=== PATIENT | female | born 1980 | race American Indian/Alaskan Native ===

== ENCOUNTER 2018-12-21 19:17 | Emergency (ER) | payer MEDICARE ==
[2018-12-21] MEDS ORDERED: MORPHINE IV ONE (20:38)
[2018-12-21] MEDS ORDERED: ZOFRAN IV ONE (20:38)
--- NOTE | 2018-12-21 20:38 | Emergency Department Report ---
ED Psych HPI - General Chief Complaint: Medical Clearance Stated Complaint: MH EVAL/CROHNS PAIN Time Seen by Provider: 12/21/18 19:35 Source: EMS Mode of arrival: Stretcher - History of Present Illness Initial Comments: Patient is a 38-year-old female with history of depression, Crohn's disease, squamous cell carcinoma of the skin in remission. Patient presented to the ER complaining of feeling depressed and hearing voices. Patient also stated that she has been having some visual hallucinations to. Patient stated that she thing that she has nothing to live for. Patient stated that she does not have any social support. Patient denied any homicidal ideation. Patient is also complaining of chronic abdominal pains secondary to her Crohn's disease. No fever or chills. MD Complaint: suicidal ideation, feels depressed -: week(s) Associated Psychiatric Symptoms: depression, suicidal ideation, auditory hallucinations Quality: constant Associated Symptoms: denies other symptoms Treatments Prior to Arrival: none If Self Harm: admits thoughts of - Related Data Allergies Allergy/AdvReac Type Severity Reaction Status Date / Time ibuprofen Allergy Hives Verified 12/21/18 19:40 ED Review of Systems ROS: Stated complaint: MH EVAL/CROHNS PAIN Other details as noted in HPI Comment: All other systems reviewed and negative Constitutional: denies: chills, fever Respiratory: denies: cough, orthopnea, shortness of breath, SOB with exertion, SOB at rest, wheezing Cardiovascular: denies: chest pain, palpitations Gastrointestinal: abdominal pain. denies: nausea, vomiting, diarrhea, constipation, hematemesis, melena, hematochezia Musculoskeletal: denies: back pain Neurological: denies: headache, weakness, numbness, paresthesias, confusion, abnormal gait ED Past Medical Hx - Past Medical History Hx of Cancer: Yes (Co) Additional medical history: Crohn disease - Social History Smoking Status: Current Every Day Smoker Substance Use Type: Alcohol ED Physical Exam - General Limitations: No Limitations General appearance: alert, in no apparent distress, anxious - Head Head exam: Present: atraumatic, normocephalic, normal inspection - Eye Eye exam: Present: normal appearance, PERRL - ENT ENT exam: Present: normal exam, normal orophraynx, mucous membranes moist - Neck Neck exam: Present: normal inspection, full ROM. Absent: tenderness, meningismus, lymphadenopathy, thyromegaly - Respiratory Respiratory exam: Present: normal lung sounds bilaterally. Absent: respiratory distress, wheezes, rales, rhonchi, stridor, chest wall tenderness, accessory muscle use, decreased breath sounds, prolonged expiratory - Cardiovascular Cardiovascular Exam: Present: regular rate, normal rhythm, normal heart sounds - GI/Abdominal GI/Abdominal exam: Present: soft, normal bowel sounds. Absent: distended, tenderness, guarding, rebound, rigid, organomegaly, mass, bruit, pulsatile mass, hernia - Extremities Exam Extremities exam: Present: normal inspection, full ROM, normal capillary refill. Absent: pedal edema, calf tenderness - Back Exam Back exam: Present: normal inspection, full ROM. Absent: tenderness, CVA tenderness (R), CVA tenderness (L), muscle spasm, paraspinal tenderness - Neurological Exam Neurological exam: Present: alert, oriented X3, CN II-XII intact, normal gait, reflexes normal - Skin Skin exam: Present: warm, intact, normal color ED Course Vital Signs 12/21/18 12/21/18 12/21/18 20:15 20:54 21:24 Temperature 98.3 F Pulse Rate 98 H Respiratory 20 18 18 Rate Blood Pressure 130/75 [Left] O2 Sat by Pulse 100 Oximetry 12/22/18 12/22/18 02:00 03:10 Temperature 97.9 F Pulse Rate 89 Respiratory 16 Rate Blood Pressure 84/46 104/58 [Left] O2 Sat by Pulse 100 Oximetry ED Medical Decision Making - Lab Data Result diagrams: 12/21/18 20:57 12/21/18 20:57 Critical care attestation.: If time is entered above; I have spent that time in minutes in the direct care of this critically ill patient, excluding procedure time. ED Disposition Clinical Impression: Depression, Suicidal ideation Disposition: DC/TX-[facility] PSY HOSP/PSY UNIT Is pt being admited?: No Condition: Stable Referrals: PRIMARY CARE, [Primary Care Provider] - 3-5 Days
[2018-12-21 21:22] LABS: Basophils % (Auto) 0.7 % (0.0-1.8); Eosinophils % (Auto) 0.4 % (0.0-4.3); Hematocrit 40.4 % (30.3-42.9); Hemoglobin 13.6 gm/dl (10.1-14.3); Lymphocytes # (Auto) 1.4 K/mm3 (1.2-5.4); Lymphocytes % (Auto) 25.3 % (13.4-35.0); Mean Corpuscular HGB Conc 34 % (30-34); Mean Corpuscular Volume 91 fl (79-97); Monocytes # (Auto) 0.3 K/mm3 (0.0-0.8); Monocytes % (Auto) 5.1 % (0.0-7.3); Platelet Count 357 K/mm3 (140-440); Red Blood Count 4.44 M/mm3 (3.65-5.03); Red Cell Distribution Width 16.1 % (13.2-15.2)
[2018-12-21 21:37] LABS: BUN/Creatinine Ratio 17; Blood Urea Nitrogen 10 mg/dL (7-17); Hemolysis Index 4
[2018-12-21] MEDS ORDERED: GEODON IM ONE (21:40)
[2018-12-21] MEDS ORDERED: WATER FOR INJ (PF) ONE (21:49)
[2018-12-21 22:44] LABS: Bacteria,Urine 1+ /HPF (Negative); Bilirubin,Urine NEG (Negative); Blood,Urine NEG (Negative); Color,Urine Yellow (Yellow); Mucus,Urine 1+ /HPF; Protein,Urine <15 mg/dL mg/dL (Negative); Urobilinogen,Urine < 2.0 mg/dL (<2.0)
[2018-12-21 22:59] LABS: Amphetamine Screen,Urine PRESUMPTIVE NEGATIVE; Benzodiazepines Screen,Urine PRESUMPTIVE NEGATIVE; Cocaine Screen,Urine PRESUMPTIVE NEGATIVE; Methadone Screen,Urine PRESUMPTIVE NEGATIVE; Opiate Screen,Urine PRESUMPTIVE NEGATIVE
[2018-12-21 23:25] LABS: Cannabinoid Screen,Urine PRESUMPTIVE POSITIVE
[2018-12-22 03:13] VITALS: BP 104/58
[2018-12-22] MEDS ORDERED: GEODON IM ONE (08:56)
[2018-12-22] MEDS ORDERED: MORPHINE IM ONE (09:23)
[2018-12-22] MEDS ORDERED: ZOFRAN IM ONE (09:24)
[2018-12-22] MEDS ORDERED: FLUSH HEPARIN IV ONE (12:29)
== END 2018-12-22 16:30 ==
LOC: EEVIPCON 19:17 → ED 19:17
DX: F32.9 Major depressive disorder, single episode, unspecified (principal); K50.90 Crohn's disease, unspecified, without complications; F17.200 Nicotine dependence, unspecified, uncomplicated; Z88.5 Allergy status to narcotic agent
CPT/HCPCS: 36415; 80048; 80307; 81001; 84703; 85025; 96372; 96374; 96375; 99285; G0480; J1642; J2270; J2405; J3486; 80320

== ENCOUNTER 2021-02-26 16:02 | Emergency (ER) | payer MEDICAID, MEDICARE ==
[2021-02-26] MEDS ORDERED: ONDANSETRON 4 MG/2 ML INJ IV ONE (16:45)
[2021-02-26] MEDS ORDERED: SODIUM CHLORIDE 0.9% 1000 ML 1,000 ML IV ONE ×2 (16:45→19:05)
[2021-02-26] MEDS ORDERED: MORPHINE 4 MG/1 ML INJ IV ONE (16:45)
--- NOTE | 2021-02-26 16:49 | Emergency Department Report ---
ED Abdominal Pain HPI - General Chief Complaint: Abdominal Pain Stated Complaint: ABD PAIM/CHRONS DISEASE Time Seen by Provider: 02/26/21 16:28 Source: patient, EMS Mode of arrival: Stretcher Limitations: No Limitations - History of Present Illness Initial Comments: Patient is 40 years old female with history of Crohn's disease and squamous cell carcinoma of the back. Patient presented to the ER complaining of diffuse abdominal pain for the last 5 days associated with nausea and vomiting. Patient stated that she noticed diarrhea in her colostomy bag. Patient denied any fever or chills. Patient also complaining of left lower chest pain that radiated to the left upper quadrant area. Patient denied any recent injury. MD Complaint: abdominal pain -: days(s) Location: diffuse, LUQ Radiation: none Migration to: no migration Severity scale (0 -10): 10 Quality: cramping, sharp Consistency: constant Associated Symptoms: nausea, vomiting, diarrhea - Related Data Allergies Allergy/AdvReac Type Severity Reaction Status Date / Time ibuprofen Allergy Hives Verified 12/21/18 19:40 ED Review of Systems ROS: Stated complaint: ABD PAIM/CHRONS DISEASE Other details as noted in HPI Comment: All other systems reviewed and negative Constitutional: denies: chills, fever Respiratory: denies: cough, shortness of breath, SOB with exertion Cardiovascular: chest pain. denies: palpitations Gastrointestinal: abdominal pain, nausea, vomiting, diarrhea. denies: constipation, hematemesis, melena, hematochezia Musculoskeletal: denies: back pain Neurological: denies: headache, weakness, numbness, paresthesias, confusion, abnormal gait ED Past Medical Hx - Past Medical History Additional medical history: Crohn disease - Social History Smoking Status: Unknown if ever smoked ED Physical Exam - General Limitations: No Limitations General appearance: alert, in no apparent distress - Head Head exam: Present: atraumatic, normocephalic, normal inspection - Eye Eye exam: Present: normal appearance, PERRL - ENT ENT exam: Present: mucous membranes dry - Neck Neck exam: Present: normal inspection, full ROM. Absent: tenderness, meningismus - Respiratory Respiratory exam: Present: normal lung sounds bilaterally - Cardiovascular Cardiovascular Exam: Present: regular rate, normal rhythm, normal heart sounds - GI/Abdominal GI/Abdominal exam: Present: soft, normal bowel sounds. Absent: distended, t enderness, guarding, rebound, rigid, organomegaly, mass, bruit, pulsatile mass, hernia - Extremities Exam Extremities exam: Present: normal inspection, full ROM, normal capillary refill - Back Exam Back exam: Present: normal inspection, full ROM. Absent: CVA tenderness (R), CVA tenderness (L) - Neurological Exam Neurological exam: Present: alert, oriented X3, CN II-XII intact, normal gait, reflexes normal. Absent: motor sensory deficit - Psychiatric Psychiatric exam: Present: normal mood - Skin Skin exam: Present: warm, intact, normal color ED Course Vital Signs 02/26/21 02/26/21 02/26/21 16:14 16:19 19:50 Temperature 98.9 F 98.2 F Pulse Rate 89 89 Respiratory 16 17 18 Rate Blood Pressure 117/58 102/43 [Left] O2 Sat by Pulse 100 100 Oximetry 02/26/21 02/26/21 02/26/21 20:00 20:46 21:00 Temperature Pulse Rate 102 H 89 Respiratory 18 18 16 Rate Blood Pressure 103/58 102/59 [Left] O2 Sat by Pulse 100 99 Oximetry 02/26/21 22:00 Temperature Pulse Rate 77 Respiratory 16 Rate Blood Pressure 109/67 [Left] O2 Sat by Pulse 99 Oximetry ED Medical Decision Making - Lab Data Result diagrams: 02/26/21 17:03 02/26/21 17:02 - Radiology Data Radiology results: report reviewed - Medical Decision Making Patient is 40 years old female with history of Crohn's disease and squamous cell carcinoma of the back. Patient presented to the ER complaining of diffuse abdominal pain for the last 5 days associated with nausea and vomiting. Patient stated that she noticed diarrhea in her colostomy bag. Patient denied any fever or chills. Patient also complaining of left lower chest pain that radiated to the left upper quadrant area. Patient denied any recent injury Patient received multiple doses of pain medication including morphine and fentanyl. She also received Zofran and Reglan. Patient received normal saline. Patient stated that she is feeling much better. No nausea or vomiting. CT abdomen and pelvis is unremarkable. Urine is positive for UTI. Patient received Rocephin 1 g IV and given prescription for Macrobid advised to follow- up with her primary doctor in the next 2 to 3 days and to return to the ER if she develop any new symptoms. Critical care attestation.: If time is entered above; I have spent that time in minutes in the direct care of this critically ill patient, excluding procedure time. ED Disposition Clinical Impression: Acute abdominal pain, Exacerbation of Crohn's disease, UTI (urinary tract infection), Acute nausea with nonbilious vomiting Disposition: TO HOME OR SELFCARE Is pt being admited?: No Condition: Stable Instructions: Abdominal Pain (ED), Nausea and Vomiting, Adult, Abdominal Pain, Adult Referrals: PRIMARY CARE,MD [Primary Care Provider] - 3-5 Days
[2021-02-26 17:33] LABS: Basophils % (Auto) 0.2 % (0.0-1.8); Hematocrit 41.7 % (30.3-42.9); Hemoglobin 14.3 gm/dl (10.1-14.3); Lymphocytes # (Auto) 1.2 K/mm3 (1.2-5.4); Lymphocytes % (Auto) 17.3 % (13.4-35.0); Mean Corpuscular HGB Conc 34 % (30-34); Mean Corpuscular Volume 94 fl (79-97); Monocytes # (Auto) 0.4 K/mm3 (0.0-0.8); Monocytes % (Auto) 6.2 % (0.0-7.3); Platelet Count 323 K/mm3 (140-440); Red Blood Count 4.43 M/mm3 (3.65-5.03); Red Cell Distribution Width 15.4 % (13.2-15.2)
[2021-02-26 18:04] LABS: Bilirubin,Urine NEG (Negative); Blood,Urine NEG (Negative); Color,Urine Yellow (Yellow); Mucus,Urine 3+ /HPF; Urobilinogen,Urine < 2.0 mg/dL (<2.0)
[2021-02-26] MEDS ORDERED: PROMETHAZINE 25 MG RECT SUPP PR ONE (19:07)
--- NOTE | 2021-02-26 19:30 | XRay Report ---
CHEST 1 VIEW 02/26/2021 6:22 PM INDICATION / CLINICAL INFORMATION: chest pain. COMPARISON: [facility] radiograph dated 08/01/19 FINDINGS: SUPPORT DEVICES: Right Port-A-Cath is unchanged. HEART / MEDIASTINUM: No significant abnormality. LUNGS / PLEURA: No significant pulmonary or pleural abnormality. No pneumothorax. ADDITIONAL FINDINGS: No significant additional findings. IMPRESSION: 1. No acute findings. No significant change. Signer Name: Ana M Cardenas MD Signed: 02/26/2021 7:25 PM Workstation Name: [id number]
[2021-02-26] MEDS ORDERED: PROMETHAZINE 25 MG TAB PO ONE (20:23)
[2021-02-26] MEDS ORDERED: METOCLOPRAMIDE 10 MG/2 ML INJ IV ONE (20:31)
[2021-02-26] MEDS ORDERED: fentaNYL 250 MCG/5 ML INJ IV ONE ×2 (20:32→20:43)
[2021-02-26 20:38] LABS: Alanine Aminotransferase 21 units/L (7-56); Albumin 5.1 g/dL (3.9-5); BUN/Creatinine Ratio 26; Bilirubin,Direct < 0.2 mg/dL (0-0.2); Blood Urea Nitrogen 21 mg/dL (7-17); Calcium 10.4 mg/dL (8.4-10.2); Hemolysis Index 32
[2021-02-26] MEDS ORDERED: fentaNYL 100 MCG/2 ML INJ IV ONE ×2 (21:00)
--- NOTE | 2021-02-26 21:57 | Cat Scan Report ---
CT ABDOMEN AND PELVIS WITHOUT CONTRAST INDICATION / CLINICAL INFORMATION: Pt complains of bi-lateral upper abd pain that radiates downward.. TECHNIQUE: Axial CT images were obtained through the abdomen and pelvis without IV contrast. All CT scans at [facility] location are performed using CT dose reduction for ALARA by means of automated exposure control. COMPARISON: None available. FINDINGS: LOWER CHEST: No significant abnormality. LIVER: No significant abnormality. GALLBLADDER: Distended without wall thickening or pericholecystic edema. PANCREAS: No significant abnormality. SPLEEN: No significant abnormality. ADRENALS: No significant abnormality. KIDNEYS / URETERS: No significant abnormality. URINARY BLADDER: No significant abnormality. REPRODUCTIVE ORGANS: No significant abnormality. STOMACH / SMALL BOWEL: No significant abnormality. COLON: Postsurgical changes from prior distal partial colectomy. The left sided colostomy demonstrate s no significant abnormality. There is no parastomal hernia. APPENDIX: No significant abnormality. PERITONEUM: No free fluid. No free air. No fluid collection. LYMPH NODES: No significant adenopathy. AORTA / ARTERIES: No significant abnormality. IVC / VEINS: No significant abnormality. SKELETAL SYSTEM: No significant abnormality. ADDITIONAL FINDINGS: None. IMPRESSION: 1. No acute abdominopelvic abnormality. 2. Hydropic gallbladder without stones or wall thickening. 3. Postsurgical changes from prior distal colectomy. The left-sided colostomy demonstrates no signifi cant abnormality. Signer Name: Leon Stephens MD Signed: 02/26/2021 9:52 PM Workstation Name: [id number]
[2021-02-26] MEDS ORDERED: cefTRIAXone/NS 1 GM/50 ML 1 GM/50 ML BAG IV ONE (23:42)
[2021-02-27 00:54] VITALS: BP 131/75
--- NOTE | 2021-02-28 17:32 | Electrocardiograph Report ---
[facility] Test Date: 2021-02-26 Test Time: 21:49:45 Pat Name: HERVE SELBY Department: Room: Gender: F Senior Water/Wastewater Engineer: ALEJANDRO : 1980 Requested By: COLEEN BURNS Order Number: [id number] Reading MD: Shine Arriola Measurements Intervals [place] Rate: 84 P: 75 MO: 154 QRS: 67 QRSD: 76 T: 53 QT: 379 QTc: 449 Interpretive Statements Sinus rhythm No previous ECG available for comparison Electronically Signed On 02-28-2021 17:32:22 EDT by Shine Arriola
== END 2021-02-27 00:54 | disposition home or self-care (01) ==
LOC: ED 16:02
DX: N39.0 Urinary tract infection, site not specified (principal); K50.90 Crohn's disease, unspecified, without complications; Z88.8 Allergy status to other drugs, medicaments and biological substances
CPT/HCPCS: 36415; 71045; 74176; 80048; 80076; 81001; 83690; 84484; 84703; 85025; 87086; 93005; 96361; 96365; 96375; 99285; J0696; J1642; J2270; J2405; J2765; J3010; J7030; Q0169